=== PATIENT | female | born 1965 | race Caucasian/White ===

== ENCOUNTER 2017-01-30 12:44 | Inpatient (IN) | payer OTHER, MEDICARE ==
[~2017-01-30] VITALS: Ht 160 cm; Wt 95.3 kg
[~2017-01-30 12:44] MED LIST: COMBIVENT1 AR1 INH
--- NOTE | 2017-01-30 12:51 | NUR ---
51 Y/O FEMALE SENT BY DR SNOW FOR EVAL OF "PNEUMONIA X 3 WEEKS. HE WANTS AN XRAY AND CT SCAN". PT STATES SHE HAS FINISHED 2 ROUNDS OF ANTIBIOTICS WITH NO CHANGE IN SYMPTOMS. CONTINUED COUGH AND STATES THE PHLEGM SITS IN CHEST NOW. REPORTS GOOD APPETITE/PO INTAKE. REPORTS FEVERS AT HOME. AFEBRILE IN TRIAGE PT STATES DR SNOW REQUESTED A PHONE CALL AFTER EVAL. COPY OF VISIT WITH DR SNOW PLACED WITH CHART
--- NOTE | 2017-01-30 13:00 | NUR ---
TAKEN TO RADIOLOGY FROM WAITING ROOM
--- NOTE | 2017-01-30 13:13 | NUR ---
PT TO RM 20 VIA STRETCHER
--- NOTE | 2017-01-30 13:18 | RADIOLOGY REPORT ---
EXAMINATION: XR CHEST CLINICAL INFORMATION: Pneumonia which is not improving. COMPARISON: Multiple priors, most recently 01/24/2017. TECHNIQUE: 2 views of the chest were obtained. FINDINGS: The lungs are well expanded. There is persistent opacity throughout the right lung, particularly along the peripheral right mid to lower lung. Central bronchial wall thickening and opacities are improving from prior. Improving aeration at the right lung base. No pleural effusion. No pneumothorax. The cardiomediastinal silhouette is within normal limits. Degenerative changes of the spine. IMPRESSION: Persistent right lung airspace opacities, particularly at the periphery of the right mid to upper lung. There is partial improvement of aeration at the right perihilar region and at the right base, suggesting improving pneumonia.
--- NOTE | 2017-01-30 13:36 | ED DYSPNEA/ASTHMA COMPLAINT ---
History of Present Illness General Chief Complaint: General Adult Stated Complaint: PNA X 3WEEKS Source: patient, family, old records Exam Limitations: no limitations Vital Signs & Intake/Output Vital Signs & Intake/Output Vital Signs Date Time Temp Pulse Resp B/P Pulse O2 O2 Flow FiO2 Ox Delivery Rate 01/31 0832 111 176/80 01/31 0618 98.0 111 20 176/80 95 Room Air 01/30 2250 98.3 114 19 150/80 94 Room Air 01/30 2009 Room Air 01/30 1731 99.4 118 19 164/80 95 Room Air 01/30 1638 98.6 118 18 178/88 95 Room Air 01/30 1415 99.5 120 18 177/85 97 Room Air 01/30 1315 96 Room Air 01/30 1247 97.7 126 18 184/99 96 Room Air ED Intake and Output 01/31 0000 01/30 1200 Intake Total 975 Output Total Balance 975 Intake, IV 225 Intake, Oral 750 Patient 210 lb Weight Allergies Coded Allergies: cyclophosphamide (From CYTOXAN) (UNKNOWN 01/30/17) methylprednisolone (From SOLU-MEDROL) (UNKNOWN 01/30/17) Reconcile Medications Carisoprodol 350 MG TABLET 1 TAB PO BIDP PRN MUSCLE SPASMS (Reported) Cefdinir 300 MG CAPSULE 1 CAP PO BID ANTIBIOTIC, INFECTION (Reported) Clonazepam 1 MG TABLET 1 TAB PO BIDP PRN ANXIETY (Reported) Cyanocobalamin (Vitamin B-12) (Cyanocobalamin Injection) 1,000 MCG/ML VIAL 1 ML IM QSAT SUPPLEMENT (Reported) Cyclobenzaprine HCl 10 MG TABLET 1 TAB PO TID PRN MUSCLE SPASMS (Reported) Esomeprazole (Nexium) 40 MG CAPSULE.DR 1 CAP PO QPM GI (Reported) Fluticasone-Salmeterol (Advair 100-50 Diskus) 100 MCG-50 MCG/DOSE BLST.W.DEV 1 PUF INH BID BREATHING PROBLEMS (Reported) Furosemide 20 MG TABLET 1 TAB PO DAILY PRN WATER PILL (Reported) Hydrocodone/Acetaminophen (Hydrocodon-Acetaminophn 10-300) 10 MG-300 MG TABLET 1 TAB PO Q6 PRN PAIN (Reported) Ipratropium/Albuterol Sulfate (Combivent Respimat Inhal Freeborn) 20 MCG-100 MCG/ ACTUATION MIST.INHAL 2 PUFF PO DAILY PRN SHORTNESS OF BREATH (Reported) Linaclotide (Linzess) 290 MCG CAPSULE 1 CAP PO DAILY GI (Reported) Losartan Potassium 50 MG TABLET 1 TAB PO DAILY HEART (Reported) Metformin HCl 500 MG TABLET 1 TAB PO DAILY DM (Reported) Oxycodone HCl 15 MG TABLET 1 TAB PO TIDPRN PRN PAIN (Reported) Triage Note: 51 Y/O FEMALE SENT BY DR VERDUZCO FOR EVAL OF "PNEUMONIA X 3 WEEKS. HE WANTS AN XRAY AND CT SCAN". PT STATES SHE HAS FINISHED 2 ROUNDS OF ANTIBIOTICS WITH NO CHANGE IN SYMPTOMS. CONTINUED COUGH AND STATES THE PHLEGM SITS IN CHEST NOW. REPORTS GOOD APPETITE/PO INTAKE. REPORTS FEVERS AT HOME. AFEBRILE IN TRIAGE PT STATES DR VERDUZCO REQUESTED A PHONE CALL AFTER EVAL. COPY OF VISIT WITH DR VERDUZCO PLACED WITH CHART Triage Nurses Notes Reviewed? yes Onset: Abrupt Duration: week(s): (3), constant Timing: recent history Severity: moderate Activities at Onset: none Prior Episodes/Possible Cause: no prior episodes Modifying Factors: Worsens With: movement. Associated Symptoms: cough HPI: 51-year-old female history of MS presents emergency room for evaluation sent in by her primary care physician complaining of persistent shortness of breath right-sided chest pain cough productive of yellow sputum and fevers for the past 3 weeks. She was recently on a course of azithromycin and Ceftin year after she had an outpatient x-ray that showed pneumonia. The symptoms persist and she was sent in today for further evaluation and admission by her primary care physician. She denies any abdominal pain leg swelling numbness tingling weakness no recent travel. She is an active smoker no modifying factors or associated symptoms otherwise (LUANNE BURRELL) Past History Travel History Traveled to [place] past 21 day No Medical History Any Pertinent Medical History? see below for history Neurological: multiple sclerosis EENT: NONE Cardiovascular: NONE Respiratory: BORDERLINE ASTHMA Gastrointestinal: NONE Renal: NONE Musculoskeletal: NONE Endocrine: NONE Blood Disorders: NONE Pneumonia Vaccine: 07/17/02 Influenza Vaccine: 07/16/03 Surgical History Surgical History: unobtainable Psychosocial History What is your primary language Lao Tobacco Use: Current Not Daily Family History Hx Contributory? No (LUANNE BURRELL) Review of Systems Review of Systems Constitutional: Reports: see HPI. All Other Systems: Reviewed and Negative Comments Review of systems: See HPI, All other systems negative. Constitutional, no chills no fever, no malaise HEENT: No visual changes no sore throat no congestion, Cardiovascular: No chest pain , no palpitation , no orthopnea no ankle swelling Skin, no jaundice no rashes, no change in skin Respiratory: dyspnea cough sputum no hemoptysis GI: No nausea no vomiting, no diarrhea, : No dysuria Muscle skeletal: No joint pain, no back pain, no neck pain, Neurologic: No numbnesS no headache Psych: No stress Heme/endocrine: No bruising no bleeding Immunology: No lymphadenopathy (LUANNE BURRELL) Physical Exam Physical Exam General Appearance: well developed/nourished, alert, awake Respiratory: chest non-tender, crackles (R SIDED) Comments: Well-developed well-nourished person in no acute distress HEENT: Normal EENT exam; PERRL, EOMI. HEAD is atraumatic. moist mucous membranes. Neck: Supple, BACK: no CVA tenderness. Full range of motion Cardiovascular: Regular rate and rhythms no murmurs rubs or gallops, normal JVP Respiratory: Chest nontender.There were no bony deformities, no asymmetry. No respiratory distress. Patient speaking in full complete sentences. Crackles right side no rhonchi no wheezing Abdomen: Soft, nontender nondistended, no appreciable organomegaly. Normal bowel sounds. No rebound/guarding, No ascites. Extremity: No edema, full range of motion of extremities, Neuro: Alert oriented x3, motor sensory normal,. There were no obvious focal neurologic abnormalities. Skin: No appreciable rash on exposed skin, skin is warm and dry. Psych: Mood and affect is normal, memory and judgment is normal. Core Measures ACS in differential dx? Yes Severe Sepsis Present: No Septic Shock Present: No (LUANNE BURRELL) Progress Differential Diagnosis: asthma, AMI, bronchitis, costochondritis, CHF, COPD, musculoskeletal pain, pericarditis, pulmonary embolism, pneumonia, pneumothorax, unstable angina Plan of Care: Orders Procedure Date/time Status RAPID VIRAL INFLUENZA A 01/31 0910 Active CBC WITHOUT DIFFERENTIAL 01/31 0600 Active Heart Healthy Diet 01/30 D Active Vital Signs 01/31 1756 Active Teach/Educate 01/31 1756 Active Pain Treatment and Response 01/31 1756 Active Nutritional Intake, Monitor 04/17 1756 Active Isolation 04/17 1756 Active Intake & Output 01/30 1756 Active Patient Care Conference 01/30 1756 Active Activity/Ambulation 01/30 1756 Active FingerStick- Glucose 01/30 1752 Active STREP PNEUMO URINARY ANTIGEN 01/30 1618 Active LEGIONELLA URINARY ANTIGEN 01/30 1618 Active Pathway - chart 01/30 1533 Active House Staff 01/30 1533 Active Patient Data 01/30 1533 Active Code Status 01/30 1533 Active Add-on Test (ER Only) 01/30 1532 Active D-DIMER 01/30 1450 Complete Admit to inpatient 01/30 1351 Active Vital Signs 01/30 1351 Active Code Status 01/30 1351 Complete BLOOD CULTURE 01/30 1344 Active TROPONIN LEVEL 01/30 1344 Complete COMPREHENSIVE METABOLIC PANEL 01/30 1344 Complete CBC WITHOUT DIFFERENTIAL 01/30 1344 Complete EKG 01/30 1344 Active Intake & Output 01/30 1315 Active VTE Mechanical Prophylaxis 01/30 UNK Active Current Medications Sig/Jai Start time Last Medication Dose Stop Time Status Admin Cyanocobalamin 1,000 MCG QSAT 02/04 0700 AC (Vitamin B12) Azithromycin 500 MG DAILY 01/31 1000 CAN (Zithromax) Sodium Chloride 250 ML (Normal Saline 0.9%) Ceftriaxone Sodium 1,000 MG DAILY 01/31 1000 CAN (Rocephin) Moxifloxacin HCl 400 MG Q24 01/31 1000 CAN (Avelox I.v. (Rph Only)) Senna/Docusate Sodium 2 TAB DAILY PRN 01/30 2045 AC (Senokot S) Insulin Aspart 0 TIDAC 01/30 1700 AC (NovoLOG) Enoxaparin Sodium 40 MG DAILY 01/30 1624 AC (Lovenox) Morphine Sulfate 2 MG Q4P PRN 01/30 1545 AC (Morphine) Laboratory Tests 01/31/17 0709: CBC w Diff Pending, WBC Pending, RBC Pending, Hgb Pending, Hct Pending, MCV Pending, MCH Pending, RDW Pending, Plt Count Pending, MPV Pending, Gran % Pending, Lymphocytes % Pending, Monocytes % Pending, Eosinophils % Pending, Basophils % Pending, Absolute Granulocytes Pending, Absolute Lymphocytes Pending , Absolute Monocytes Pending, Absolute Eosinophils Pending, Absolute Basophils Pending, PUBS MCHC Pending 01/30/17 1450: Anion Gap 13, Estimated GFR > 60, BUN/Creatinine Ratio 10.0, Glucose 215 H, Calcium 9.6, Total Bilirubin 0.3, AST 18, ALT 40, Alkaline Phosphatase 143 H, Troponin I < 0.01, Total Protein 6.4, Albumin 3.3 L, Globulin 3.1, Albumin/ Globulin Ratio 1.1, D-Dimer 3968 H, CBC w Diff NO MAN DIFF REQ, RBC 4.41, MCV 80.3 L, MCH 27.0, RDW 13.7, MPV 7.1 L, Gran % 75.4 H, Lymphocytes % 16.5 L, Monocytes % 7.4, Eosinophils % 0.5, Basophils % 0.2, Absolute Granulocytes 11.5 H, Absolute Lymphocytes 2.5, Absolute Monocytes 1.1 H, Absolute Eosinophils 0.1 , Absolute Basophils 0, PUBS MCHC 33.6 Microbiology 01/31 0910 NASOPHARYN: Influenza Virus A & B Rapid Smear - ORD 01/30 1618 URINE ROUT: Legionella Antigen - COLB 01/30 1618 URINE ROUT: Streptococcus pneumoniae Antigen (M - COLB 01/30 1600 BLOOD: Blood Culture - RECD 01/30 1450 BLOOD: Blood Culture - RECD Labs ordered old records reviewed CAT scan x-rays ordered case discussed with Dr. Verduzco agrees with plan D/W DR TURPIN AGREES WTIH PLAN Discussed with the patient her CT findings, pending labs Old records reviewed the patient's tachycardia appears to have been present in her previous emergency room visits dating back through 2009 as well as her elevated blood pressure which she states she is not taken any medication, I considered pulmonary embolism however given duration of symptoms and do not believe the patient required a CTA at this time Case discussed withdr nunez will admit (LUANNE BURRELL) Diagnostic Imaging: Viewed by Me: Radiology Read. Discussed w/RAD: Radiology Read. Radiology Impression: PATIENT: TANA SANTILLAN PRESENT AGE: 51 PATIENT ACCOUNT NO: [id number] : 63 LOCATION: [facility] ORDERING PHYSICIAN: JOSEPHINE TURPIN MD SERVICE DATE: 01/30/17-1251 EXAM TYPE: RAD - XRY-CHEST XRAY, PA AND LATERAL EXAMINATION: XR CHEST CLINICAL INFORMATION: Pneumonia which is not improving. COMPARISON: Multiple priors, most recently 08/2017. TECHNIQUE: 2 views of the chest were obtained. FINDINGS: The lungs are well expanded. There is persistent opacity throughout the right lung, particularly along the peripheral right mid to lower lung. Central bronchial wall thickening and opacities are improving from prior. Improving aeration at the right lung base. No pleural effusion. No pneumothorax. The cardiomediastinal silhouette is within normal limits. Degenerative changes of the spine. IMPRESSION: Persistent right lung airspace opacities, particularly at the periphery of the right mid to upper lung. There is partial improvement of aeration at the right perihilar region and at the right base, suggesting improving pneumonia. DICTATED BY: DALILA ELIZABETH MD DATE/TIME DICTATED:01/30 NOVELTY DIPPER:RENAE DATE/TIME TRANSCRIBED:01/30/171312 CONFIDENTIAL, DO NOT COPY WITHOUT APPROPRIATE AUTHORIZATION. <Electronically signed in Other Vendor System> SIGNED BY: DALILA ELIZABETH MD 01/30/178, PATIENT: TANA SANTILLAN PRESENT AGE: 51 PATIENT ACCOUNT NO: [id number] : 63 LOCATION: [facility] ORDERING PHYSICIAN: LUANNE BAUGH SERVICE DATE: 01/30/17 EXAM TYPE: CAT - CT CHEST WO IV CONTRAST EXAMINATION: CT CHEST WITHOUT CONTRAST CLINICAL INFORMATION: Right upper lobe pneumonia COMPARISON: CT chest dated 04/04/2016. Multiple prior chest x-rays most recent prior dated 01/30/2017 TECHNIQUE: Multidetector volumetric CT imaging of the chest was done. Axial MIP volume rendering provided. Sagittal and coronal reformatted images were obtained. DLP: 376.66 mGy-cm FINDINGS: SAFETY AND SECURITY MANAGER: Patchy reticular opacity right upper lung. LUNGS: Underlying emphysematous changes. Airspace consolidation with air bronchograms apical apical, lateral and posterior aspects right upper lobe. Associated reticular changes and groundglass opacity noted throughout the right upper lobe. These are new finding compared to the prior CT chest. There is also represent new findings on the chest x-ray compared to prior chest x-ray dated 01/11/2017. Patchy consolidation extends to the right hilum. Patent tracheobronchial tree. The remaining lungs do not demonstrate any evidence of similar airspace opacity. Linear subpleural ectatic changes noted in the left apical segment and minor reticular changes noted in the subpleural location right base. MEDIASTINUM: Mildly enlarged lymph node noted in the right pretracheal region measuring approximately 0.9 cm in short axis and mildly enlarged subcarinal lymph node compatible with reactive nodes. Small epicardiac lymph node noted again. No gross lymphadenopathy. Mild atherosclerotic disease with intimal calcification of the aorta. Slightly hyperdense nodule noted in the superior mediastinum measuring approximately 2.3 x 1.6 cm has remained stable over the interval. Given its long-term stability since remote CT chest dated 08/22/2013, this may represent benign etiology including parathyroid adenoma or aberrant thyroid tissue given the similar density and enhancement compared to the adjacent thyroid gland. PLEURA: Pleural thickening right upper lobe. Trace right pleural effusion. AXILLA: No lymphadenopathy. UPPER ABDOMEN: Stable right adrenal nodule measuring approximately 1.5 cm. Hounsfield units are suggestive of adrenal adenoma. Stable minor prominence of the left adrenal gland. OSSEOUS STRUCTURES: No acute osseous modality. IMPRESSION: 1. Right upper lobe consolidation with associated groundglass reticular infiltrate in keeping with right upper lobe pneumonia. Findings may represent a combination of community-acquired pneumonia including bacterial and viral pneumonia. Continued evaluation with follow-up CT chest after treatment in 4-6 weeks recommended. 2. Mildly enlarged reactive mediastinal lymph nodes. 3. Nodular density noted again in the superior mediastinum. Given the stability, this may represent either a stable superior thymic lesion versus aberrant thyroid or parathyroid adenoma. 4. Stable right adrenal nodule. DICTATED BY: DANIELLA FREEMAN MD DATE/TIME DICTATED:01/30/171399 NOVELTY DIPPER:RENAE DATE/TIME TRANSCRIBED:01/30/171399 CONFIDENTIAL, DO NOT COPY WITHOUT APPROPRIATE AUTHORIZATION. <Electronically signed in Other Vendor System> SIGNED BY: DANIELLA FREEMAN MD 01/30/17 1426 Initial ED EKG: STACH AT 120, NO ACUTE ST SEG CHANGES, NORMAL AXIS Prior EKG: unchanged (07/2015) Rhythm Strip: sinus tachycardia (LUANNE BURRELL) Departure Departure Time of Disposition: 1536 Disposition: STILL A PATIENT Condition: Stable Clinical Impression Primary Impression: PNA (pneumonia) Secondary Impressions: Adrenal nodule, Nodule of chest wall Referrals: KAITY VERDUZCO MD (PCP/Family) Departure Forms: Customer Survey General Discharge Information Admission Note Spoke With: SONIA PUENTE,OC Faith Documentation of Exam: Documentation of any treatments & extenuating circumstances including Concerns Regarding Discharge (functional status, medication knowledge or non-compliance, living conditions, etc.) that warrant an admission rather than observation: Trend labs, IV steroids IV antibiotics pulmonology consult premature discharge would BE medically harmful trend cultures. Patient has been on 2 rounds of antibiotics for the past 3 weeks without improvement. She has failed outpatient therapy (LUANNE BURRELL) PA/REPAIRER MAINTENANCE BUILDING Co-Sign Statement Statement: ED Attending supervision documentation- [] I saw and evaluated the patient. I have also reviewed all the pertinent lab results and diagnostic results. I agree with the findings and the plan of care as documented in the PA's/REPAIRER MAINTENANCE BUILDING's documentation. [X] I have reviewed the ED Record and agree with the PA's/REPAIRER MAINTENANCE BUILDING's documentation. [] Additions or exceptions (if any) to the PAs/REPAIRER MAINTENANCE BUILDING's note and plan are summarized below: [] (PAPI PUENTE,JOSEPHINE) Critical Care Note Critical Care Note Critical Care Time: non-applicable (LUANNE BURRELL)
[2017-01-30] MEDS ORDERED: LOSARTAN POTASS50 M1 PO (14:08)
[2017-01-30] MEDS ORDERED: LINZESS290 MC1 PO (14:08)
[2017-01-30] MEDS ORDERED: METFORMIN HCL500 M3 PO (14:08)
[2017-01-30] MEDS ORDERED: CARISOPRODOL350 M1 PO (14:09)
[2017-01-30] MEDS ORDERED: CYCLOBENZAPRINE10 M1 PO (14:09)
[2017-01-30] MEDS ORDERED: CLONAZEPAM1 M2 PO (14:09)
[2017-01-30] MEDS ORDERED: COMBIVENT RESPIM4 GM PO (14:10)
[2017-01-30] MEDS ORDERED: CEFDINIR300 M1 PO (14:10)
[2017-01-30] MEDS ORDERED: HYDROCODON-ACE1 EAC4 PO (14:11)
[2017-01-30] MEDS ORDERED: OXYCODONE HCL15 M1 PO (14:11)
[2017-01-30] MEDS ORDERED: CYANOCOBAL1000 MCG/2 IM (14:11)
[2017-01-30] MEDS ORDERED: ADVAIR 100-501 EACH INH (14:12)
[2017-01-30] MEDS ORDERED: FUROSEMIDE20 M1 PO (14:12)
[2017-01-30] MEDS ORDERED: NEXIUM40 M1 PO (14:13)
--- NOTE | 2017-01-30 14:26 | CT SCAN REPORT ---
EXAMINATION: CT CHEST WITHOUT CONTRAST CLINICAL INFORMATION: Right upper lobe pneumonia COMPARISON: CT chest dated 04/04/2016. Multiple prior chest x-rays most recent prior dated 01/30/2017 TECHNIQUE: Multidetector volumetric CT imaging of the chest was done. Axial MIP volume rendering provided. Sagittal and coronal reformatted images were obtained. DLP: 376.66 mGy-cm FINDINGS: ENVELOPE ADDRESSER: Patchy reticular opacity right upper lung. LUNGS: Underlying emphysematous changes. Airspace consolidation with air bronchograms apical apical, lateral and posterior aspects right upper lobe. Associated reticular changes and groundglass opacity noted throughout the right upper lobe. These are new finding compared to the prior CT chest. There is also represent new findings on the chest x-ray compared to prior chest x-ray dated 01/11/2017. Patchy consolidation extends to the right hilum. Patent tracheobronchial tree. The remaining lungs do not demonstrate any evidence of similar airspace opacity. Linear subpleural ectatic changes noted in the left apical segment and minor reticular changes noted in the subpleural location right base. MEDIASTINUM: Mildly enlarged lymph node noted in the right pretracheal region measuring approximately 0.9 cm in short axis and mildly enlarged subcarinal lymph node compatible with reactive nodes. Small epicardiac lymph node noted again. No gross lymphadenopathy. Mild atherosclerotic disease with intimal calcification of the aorta. Slightly hyperdense nodule noted in the superior mediastinum measuring approximately 2.3 x 1.6 cm has remained stable over the interval. Given its long-term stability since remote CT chest dated 08/22/2013, this may represent benign etiology including parathyroid adenoma or aberrant thyroid tissue given the similar density and enhancement compared to the adjacent thyroid gland. PLEURA: Pleural thickening right upper lobe. Trace right pleural effusion. AXILLA: No lymphadenopathy. UPPER ABDOMEN: Stable right adrenal nodule measuring approximately 1.5 cm. Hounsfield units are suggestive of adrenal adenoma. Stable minor prominence of the left adrenal gland. OSSEOUS STRUCTURES: No acute osseous modality. IMPRESSION: 1. Right upper lobe consolidation with associated groundglass reticular infiltrate in keeping with right upper lobe pneumonia. Findings may represent a combination of community-acquired pneumonia including bacterial and viral pneumonia. Continued evaluation with follow-up CT chest after treatment in 4-6 weeks recommended. 2. Mildly enlarged reactive mediastinal lymph nodes. 3. Nodular density noted again in the superior mediastinum. Given the stability, this may represent either a stable superior thymic lesion versus aberrant thyroid or parathyroid adenoma. 4. Stable right adrenal nodule.
--- NOTE | 2017-01-30 14:44 | NUR ---
MST AT BEDSIDE FOR VENIPUNCTURE
[2017-01-30 14:59] LABS: ABSOLUTE BASOPHIL COUNT 0 /CUMM (0.0-0.2); ABSOLUTE EOSINOPHIL COUNT 0.1 /CUMM (0.0-0.7); ABSOLUTE GRANULOCYTE CT 11.5 /CUMM (1.4-6.5); ABSOLUTE LYMPH COUNT 2.5 /CUMM (1.2-3.4); ABSOLUTE MONOCYTE COUNT 1.1 /CUMM (0.10-0.60); BASOPHIL % 0.2 % (0.0-2.0); EOSINOPHIL % 0.5 % (0-5); HEMATOCRIT 35.5 % (37-47); MEAN CORPUSCULAR HGB CONC 33.6 G/DL (33.0-37.0); MEAN CORPUSCULAR VOLUME 80.3 FL (81.0-99.0); MEAN PLATELET VOLUME 7.1 FL (7.4-10.4); PLATELET COUNT 475 /CUMM (130-400); RBC DISTRIBUTION WIDTH 13.7 % (11.5-14.5); RED BLOOD CELL CT 4.41 /CUMM (4.20-5.40); WHITE BLOOD CELL COUNT 15.3 /CUMM (4.8-10.8)
[2017-01-30 15:01] LABS: GRANULOCYTE % 75.4 % (42.2-75.2)
--- NOTE | 2017-01-30 15:43 | History & Physical ---
HAJA PUENTE,PRECIOUS 01/30/17 1543: General Information and HPI MD Statement: I have seen and personally examined TANA SANTILLAN and documented this H& P. The patient is a 51 year old F who presented with a patient stated chief complaint of [shortness of breath]. Source of Information: patient, old records History of Present Illness: This is a 51-year-old female with a past medical history of multiple Sclerosis in remission since 1990 diabetes currently on metformin, metformin currently on losartan, who presented to the [facility] persistent shortness of breath and fever for the last 3 weeks. The patient's symptoms started 3 weeks back for which she went to her primary care physician who started him on azithromycin and cefdinir. The patient completed 10 days course of antibiotic therapy and the patient's symptoms resolved for 1 day but came back again. She went to see her primary care physician again who referred her to the emergency department for further evaluation. In the emergency department patient was saturating to 94% had a low-grade fever of 99 was persistently tachycardic from 118-126, hypertensive blood pressure of 177/84. The patient has persistent shortness of breath along with cough which is slightly productive with whitish sputum. Denies any chest pain, reveals bronchitis or nasal congestion. The patient denies any long distance travel or any recent sick contacts. Allergies/Medications Allergies: Coded Allergies: cyclophosphamide (From CYTOXAN) (UNKNOWN 01/30/17) methylprednisolone (From SOLU-MEDROL) (UNKNOWN 01/30/17) Compliance With Home Meds: GOOD Past History Travel History Traveled to [place] past 21 day No Medical History Neurological: multiple sclerosis EENT: NONE Cardiovascular: NONE Respiratory: BORDERLINE ASTHMA Gastrointestinal: NONE Renal: NONE Musculoskeletal: NONE Endocrine: NONE Blood Disorders: NONE Pneumonia Vaccine: 07/17/02 Influenza Vaccine: 07/16/03 Surgical History Surgical History: unobtainable Past Family/Social History Family History Relations & Conditions if any FATHER Relation not specified for: FH: hypertension Psychosocial History Where do you live? Home Who Do You Live With? spouse Primary Language: Barbadian Smoking Status: Current Everyday Smoker ETOH Use: occasional use Review of Systems Review of Systems Constitutional: Reports: see HPI. Cardiovascular: Reports: see HPI. Respiratory: Reports: see HPI, cough, hemoptysis, short of breath. GI: Denies: bloating, constipation. Genitourinary: Denies: dysuria, frequency, hematuria. Musculoskeletal: Denies: back pain, gout, joint pain, joint swelling. Skin: Denies: change in hair/nails, dryness, erythema. Exam & Diagnostic Data Last 24 Hrs of Vital Signs/I&O Vital Signs Date Time Temp Pulse Resp B/P Pulse O2 O2 Flow FiO2 Ox Delivery Rate 01/30 1731 99.4 118 19 164/80 95 Room Air 01/30 1638 98.6 118 18 178/88 95 Room Air 01/30 1415 99.5 120 18 177/85 97 Room Air 01/30 1315 96 Room Air 01/30 1247 97.7 126 18 184/99 96 Room Air Intake & Output 01/30 1600 01/30 0800 01/30 0000 Intake Total 0 Output Total Balance 0 Intake, Oral 0 Patient 213 lb Weight Physical Exam General Appearance Alert, Oriented X3 Skin No Rashes, No Breakdown HEENT Atraumatic, PERRLA, EOMI Neck No JVD, No thryomegaly Cardiovascular Normal S1, Normal S2 Lungs bilateral decreased air entry no wheezing or crackles Abdomen Soft, No Tenderness Assessment/Plan Assessment: This is a 50-year-old female with a past medical history of diabetes hypertension who presented to the [facility] with persistent shortness of breath after failing outpatient treatment for community-acquired pneumonia Vitals at the time of admission shows blood pressure of 177/84 pulse rate of 122 , respiration rate of 18, saturation of 94% on room air, Labs showed a WBC of 15.3, hemoglobin of 11.9, hematocrit of 35.5, Sodium 141, potassium of 3.8, d-dimer of 3968 CT chest shows Right upper lobe consolidation with associated groundglass reticular infiltrate in keeping with right upper lobe pneumonia. Findings may represent a combination of community-acquired pneumonia including bacterial and viral pneumonia. Continued evaluation with follow-up CT chest after treatment in 4-6 weeks recommended. 2. Mildly enlarged reactive mediastinal lymph nodes. 3. Nodular density noted again in the superior mediastinum. Given the stability, this may represent either a stable superior thymic lesion versus aberrant thyroid or parathyroid adenoma. 4. Stable right adrenal nodule. EKG showed sinus tachycardia Assessment 1. Community acquired pneumonia as evident by the radiological findings who has failed outpatient therapy .2. Persistent tachycardia in the absence of any underlying cardiac disease: Even though the Wells criteria is low for pulmonary embolism but the persistently elevated heart rate and elevated d-dimer we should rule out pulmonary embolism 3. Chronic hypertension 4. Chronic diabetes mellitus 5. History of multiple sclerosis in remission Plan Admit to general medicine floor Considering that the patient has failed antibiotic therapy which included azithromycin and cefdinir we should switch the antibiotics to IV fluoroquinolones which includes moxifloxacin. 400 mg IV daily Considering that the patient has persistent tachycardia even after getting the treatment and the blood pressure medications, we should rule out pulmonary embolism even though the suspicion is low but considering elevated d-dimer's and persistent tachycardia this should be resolved Unfortunately the ED staff performed a CT chest without contrast. We will repeat the CTA For her diabetes we will convert her to NovoLog sliding scale DVT prophylaxis at all times with subcutaneous Lovenox Patient is full code Pain pathway As Ranked By This Provider Problem List: 1. PNA (pneumonia) Core Measures/Miscellaneous Acute Coronary Syndrome ACS Diagnosis: No Cerebrovascular Accident CVA/TIA Diagnosis: No Congestive Heart Failure CHF Diagnosis: No Venous Thromboembolism VTE Risk Factors: Acute medical illness, Age > 40 No [facility] VTE prophylaxis d/t: No contraindications No VTE Pharm Prophylaxis d/t: No contraindications VTE Diagnosis: No VTE Type: NONE VTE Confirmed by (Test): NONE Severe Sepsis Severe Sepsis Present: No Septic Shock Septic Shock Present: No Miscellaneous Documentation Attending Case Discussed With: OC SCOTT MD Primary Care Physician: KAITY SNOW MD Patient sees these Specialists none Level of Patient Care: General Medicine OC SCOTT 02/01/17 1335: General Information and HPI Allergies/Medications Home Med list Carisoprodol 350 MG TABLET 1 TAB PO BIDP PRN MUSCLE SPASMS (Reported) Cefdinir 300 MG CAPSULE 1 CAP PO BID ANTIBIOTIC, INFECTION (Reported) Clonazepam 1 MG TABLET 1 TAB PO BIDP PRN ANXIETY (Reported) Clotrimazole 1 % CREAM..G. 1 TATIANA TOP QAMPM CANDIDAL VULVOAGNITIS apply to affected area(s) Cyanocobalamin (Vitamin B-12) (Cyanocobalamin Injection) 1,000 MCG/ML VIAL 1 ML IM QSAT SUPPLEMENT (Reported) Cyclobenzaprine HCl 10 MG TABLET 1 TAB PO TID PRN MUSCLE SPASMS (Reported) Esomeprazole (Nexium) 40 MG CAPSULE.DR 1 CAP PO QPM GI (Reported) Fluticasone-Salmeterol (Advair 100-50 Diskus) 100 MCG-50 MCG/DOSE BLST.W.DEV 1 PUF INH BID BREATHING PROBLEMS (Reported) Furosemide 20 MG TABLET 1 TAB PO DAILY PRN WATER PILL (Reported) Hydrocodone/Acetaminophen (Hydrocodon-Acetaminophn 10-300) 10 MG-300 MG TABLET 1 TAB PO Q6 PRN PAIN (Reported) Ipratropium/Albuterol Sulfate (Combivent Respimat Inhal [place]) 20 MCG-100 MCG/ ACTUATION MIST.INHAL 2 PUFF PO DAILY PRN SHORTNESS OF BREATH (Reported) Lactobacillus Acidophilus (Acidophilus) 1 BILLION CELL TABLET 1 TAB PO DAILY PROPHYLAXIS Linaclotide (Linzess) 290 MCG CAPSULE 1 CAP PO DAILY GI (Reported) Losartan Potassium 50 MG TABLET 1 TAB PO DAILY HEART (Reported) Metformin HCl 500 MG TABLET 1 TAB PO DAILY DM (Reported) Moxifloxacin HCl (Avelox) 400 MG TABLET 1 TAB PO DAILY pneumonia Oxycodone HCl 15 MG TABLET 1 TAB PO TIDPRN PRN PAIN (Reported) Attending MD Review Statement Attending Statement Attending MD Statement: examined this patient, discuss w/resident/PA/SAFETY LEAD, agreed w/resident/PA/SAFETY LEAD, discussed with family, reviewed EMR data (avail), discussed with nursing Attending Assessment/Plan: please see my attending note for more details.
--- NOTE | 2017-01-30 16:00 | NUR ---
125MG SOLUMEDROL GIVEN. PT STATES SHE IS NOT ACTUALLY ALLERGIC TO MEDICATION, BUT SOMETIMES SHE FEELS LIKE HER HEART IS RACING AFTER SHE GETS THE SOLUMEDROL TREATMENT FOR MS
--- NOTE | 2017-01-30 16:20 | NUR ---
HOUSE STAFF AT BEDSIDE
--- NOTE | 2017-01-30 16:37 | NUR ---
PT TO ROOM 223 BED 2
--- NOTE | 2017-01-30 17:13 | NUR ---
PER ATTENDING, DO NOT GIVE LOSARTAN, PT HAD ALREADY TAKEN IT THIS MORNING. NO OTHER BP MEDS TO BE GIVEN AT THIS TIME
--- NOTE | 2017-01-30 17:20 | NUR ---
PT UP TO FLOOR 1720. PT A/0 X3 . PT ON RA. LUNGS DIMINISHED. DENIES SOB. CHRONIC PAIN PAIN MED TO BVE GIVEN PER EMAR. NO BREAKDOWN NOTED. CALL YAÑEZ USE INSTRUCTED . WILL MONITOR
[2017-01-30 17:31] VITALS: BP 164/80
--- NOTE | 2017-01-30 18:25 | Admission Certification ---
Admission Certification Certification Statement - As attending physician, I certify that at the time of - admission, based on clinical presentation, severity of - symptoms, need for further diagnostic testing and - therapeutic interventions, and risk of adverse outcomes - without in-hospital treatment, in my clinical assessment, - this patient requires an acute hospital stay for a minimum - of two nights or longer. I have also considered psychsocial - factors such as support system, advanced age, financial - issues, cognitive issues, and failed out-patient treatments, - past re-admission history, safety of patient, and lack of - compliance as applicable. Specific rationale supporting this admission is: pneumonia.
--- NOTE | 2017-01-30 18:25 | PN- Att Addend ---
Attending MD Review Statement Attending Statement Attending MD Statement: examined this patient, discuss w/resident/PA/FORENSIC PSYCHIATRIST, agreed w/resident/PA/FORENSIC PSYCHIATRIST, discussed with family, reviewed EMR data (avail), discussed w/ nursing Attending Assessment/Plan: Laboratory Tests 01/30/17 1450: Anion Gap 13, Estimated GFR > 60, BUN/Creatinine Ratio 10.0, Glucose 215 H, Calcium 9.6, Total Bilirubin 0.3, AST 18, ALT 40, Alkaline Phosphatase 143 H, Troponin I < 0.01, Total Protein 6.4, Albumin 3.3 L, Globulin 3.1, Albumin/ Globulin Ratio 1.1, D-Dimer 3968 H, CBC w Diff NO MAN DIFF REQ, RBC 4.41, MCV 80.3 L, MCH 27.0, RDW 13.7, MPV 7.1 L, Gran % 75.4 H, Lymphocytes % 16.5 L, Monocytes % 7.4, Eosinophils % 0.5, Basophils % 0.2, Absolute Granulocytes 11.5 H, Absolute Lymphocytes 2.5, Absolute Monocytes 1.1 H, Absolute Eosinophils 0.1 , Absolute Basophils 0, PUBS MCHC 33.6 Vital Signs Date Time Temp Pulse Resp B/P Pulse O2 O2 Flow FiO2 Ox Delivery Rate 01/30 1731 99.4 118 19 164/80 95 Room Air 01/30 1638 98.6 118 18 178/88 95 Room Air 01/30 1415 99.5 120 18 177/85 97 Room Air 01/30 1315 96 Room Air 01/30 1247 97.7 126 18 184/99 96 Room Air Patient seen and examined at bedside. Discussed with patient the care plan. 51 -year-old female with past medical history of multiple sclerosis diagnosed in 1990 in remission, chronic smoker, diabetes, admitted with the chief complaint of shortness of breath which started about 3 weeks back with cough. Patient was treated with a cephalosporin for 10 days and she still is currently on that with one dose left. Since patient was not improving on cephalosporin patient was started on Z-Jay by her PCP about 5 days ago and she finished her Z-Jay yesterday. Patient still was not getting better so patient presented to the ER on instructions of her primary care physician. Patient still has cough with whitish sputum. Patient had a CAT scan of the chest done in the ER which showed "Right upper lobe consolidation with associated groundglass reticular infiltrate in keeping with right upper lobe pneumonia. Findings may represent a combination of community-acquired pneumonia including bacterial and viral pneumonia." Pneumonia-given that the patient has failed cephalosporin as well as macrolide, we will start her on moxifloxacin and see how she does with that. Her d-dimer is high but to her well's score is low. But given her persistent symptoms and high d-dimer we will do a CT chest PE protocol to rule out pulmonary embolism. Nicotine dependence-patient was counseled about quitting smoking. We will put her on nicotine patch if she has cravings.
--- NOTE | 2017-01-30 20:52 | CT SCAN REPORT ---
EXAMINATION: CT PULMONARY EMBOLISM STUDY CLINICAL INFORMATION: Tachycardia, elevated d-dimer. COMPARISON: Same day chest radiographs and CT. TECHNIQUE: Contiguous helical images of the chest were obtained following the administration of IV contrast. Multiplanar reconstructions were performed. MIPS were obtained and reviewed. DLP: 636 mGy-cm. CONTRAST: 95 mL of Optiray 350 were traffic agent without incident. FINDINGS: The heart is of normal size. There is no pericardial effusion. The great vessels are unremarkable. Specifically, there is no pulmonary arterial filling defect. There is no CT evidence for pulmonary embolism. There is no discernible lymphadenopathy. There are no chest wall masses. Review of lung windows demonstrates that there are neither pleural effusions nor pneumothoraces. There is a right upper lobe consolidation. There is mild air trapping within the right lower lobe and left upper lobe. Limited evaluation of the upper abdomen demonstrates that the liver is of normal size and attenuation without focal lesions. Normal adrenal glands are identified. IMPRESSION: No CT evidence for pulmonary embolism. Right upper lobe pneumonia. Recommendation is for a followup chest series to be obtained following treatment and/or resolution of symptoms to assure resolution of this appearance.
[2017-01-30 22:50] VITALS: BP 150/80
[2017-01-31 06:18] VITALS: BP 176/80
[2017-01-31 08:35] LABS: ABSOLUTE BASOPHIL COUNT 0 /CUMM (0.0-0.2); ABSOLUTE EOSINOPHIL COUNT 0 /CUMM (0.0-0.7); ABSOLUTE LYMPH COUNT 1.5 /CUMM (1.2-3.4); ABSOLUTE MONOCYTE COUNT 0.5 /CUMM (0.10-0.60); BASOPHIL % 0 % (0.0-2.0); EOSINOPHIL % 0 % (0-5); MEAN CORPUSCULAR VOLUME 81.8 FL (81.0-99.0); MEAN PLATELET VOLUME 7.8 FL (7.4-10.4); PLATELET COUNT 464 /CUMM (130-400); RBC DISTRIBUTION WIDTH 14.3 % (11.5-14.5); RED BLOOD CELL CT 4.27 /CUMM (4.20-5.40)
[2017-01-31 10:03] VITALS: BP 150/70
[2017-01-31 10:53] LABS: GRANULOCYTE % 89.1 % (42.2-75.2)
--- NOTE | 2017-01-31 13:35 | PN- Housestaff ---
ALCIRA PUENTE,KRDENI 01/31/17 1335: Subjective Follow-up For: CAP Subjective: Saw pt at bedside. She stated that she felt better today. Afebrileovernight. She stated that she felt better than yesterday. She was ambulating with IV pole in hallway when I saw her this AM. Looks much better than yesterday. No acute overnight events or complaints. Review of Systems Constitutional: Reports: no symptoms. Cardiovascular: Denies: chest pain, palpitations. Respiratory: Reports: short of breath, sputum production. Denies: cough, orthopnea. Gastrointestinal: Reports: no symptoms. Genitourinary: Reports: no symptoms. Musculoskeletal: Reports: no symptoms. Denies: joint pain, joint swelling, muscle pain. Objective Last 24 Hrs of Vital Signs/I&O Vital Signs Date Time Temp Pulse Resp B/P Pulse O2 O2 Flow FiO2 Ox Delivery Rate 01/31 2203 98.2 100 20 160/88 94 01/31 1404 98.4 100 20 130/90 94 Room Air 01/31 1003 150/70 01/31 0832 111 176/80 01/31 0800 Room Air 01/31 0618 98.0 111 20 176/80 95 Room Air Intake & Output 01/31 1600 01/31 0800 01/31 0000 Intake Total 780 650 975 Output Total Balance 780 650 975 Intake, IV 300 450 225 Intake, Oral 480 200 750 Number 0 Bowel Movements Patient 95.254 kg Weight Physical Exam General Appearance: Alert, Oriented X3, Cooperative Skin: No Significant Lesion HEENT: Atraumatic, EOMI Neck: Supple Cardiovascular: Regular Rate, Normal S1, Normal S2 Lungs: decreased air movement on r. side. Abdomen: Soft, No Tenderness Assessment/Plan Assessment: 50 yo female with Hx of MS who repsents with failure of out pt therapy for CAP. PLAN 1. Sepsis 2/2 PNA: SIRS+ wtih sources as PNA. White count increased from 15--> 18 likely 2/2 her steroids in ED. Otherwise pt afebrile and fells better. Satting well on 2lO2. Note given pt's persistent symptoms adn PMH there is concern for aspiration or possibly obstructive causes of PNA. * Con't moxifloxacin; don't change abx. * monitor clinically * f/u legionella, strep and influenza work up * f/u CBC * NC as necessary 2. Tachycardia: Pt presented with HR 110-125. Part of her SIRS syndrome. No clear etiology other than infxn. WIll monitor for its resolution along with infxn. 3. ms: Chronic and stable. * Con't home meds Problem List: 1. Shortness of breath 2. PNA (pneumonia) Pain Ratin Pain Location: NONE Pain Goal: Remain pain free Pain Plan: NONE Tomorrow's Labs & Rationales: CBC BEP ALVINORAFY Bustos 01/31/17 1354: Attending MD Review Statement Attending Statement Attending MD Statement: examined this patient, discuss w/resident/PA/MIXER OPERATOR HOT METAL, agreed w/resident/PA/MIXER OPERATOR HOT METAL, discussed with family, reviewed EMR data (avail), discussed with nursing, discussed with case mgmt, reviewed images, amended to note Attending Assessment/Plan: 50-year-old female with a past medical history of diabetes hypertension who presented to the [facility] with persistent shortness of breath after failing outpatient treatment for community-acquired pneumonia. CT chest shows 1. Right upper lobe consolidation with associated groundglass reticular infiltrate in keeping with right upper lobe pneumonia. Findings may represent a combination of community-acquired pneumonia including bacterial and viral pneumonia. Continued evaluation with follow-up CT chest after treatment in 4-6 weeks recommended. 2. Mildly enlarged reactive mediastinal lymph nodes. 3. Nodular density noted again in the superior mediastinum. Given the stability, this may represent either a stable superior thymic lesion versus aberrant thyroid or parathyroid adenoma. 4. Stable right adrenal nodule. EKG showed sinus tachycardia ASSESSMENT and PLAN 1. Community acquired pneumonia failed outpatient therapy. IV abx, oxygen supplementation as required. 2. Persistent tachycardia CTA negativen for PE. 3. hypertension controlled 4. diabetes mellitus controlled 5. History of multiple sclerosis in remission 6. Leukocytosis
[2017-01-31 14:04] VITALS: BP 130/90
--- NOTE | 2017-01-31 15:58 | PN- Student ---
Subjective Subjective: Patient seen this morning. No acute overnight reports. Patient denies any current complaints. Objective Objective: Vital Signs Date Time Temp Pulse Resp B/P Pulse O2 O2 Flow FiO2 Ox Delivery Rate 01/31 1404 98.4 100 20 130/90 94 Room Air 01/31 1003 150/70 01/31 0832 111 176/80 01/31 0800 Room Air 01/31 0618 98.0 111 20 176/80 95 Room Air 01/30 2250 98.3 114 19 150/80 94 Room Air 01/30 2009 Room Air 01/30 1731 99.4 118 19 164/80 95 Room Air 01/30 1638 98.6 118 18 178/88 95 Room Air Intake & Output 01/31 1600 01/31 0800 01/31 0000 Intake Total 780 650 975 Output Total Balance 780 650 975 Intake, IV 300 450 225 Intake, Oral 480 200 750 Number 0 Bowel Movements Patient 210 lb Weight Physical Exam General Appearance Alert, Oriented X3, Cooperative Skin No Rashes, No Breakdown HEENT Atraumatic, PERRLA, EOMI Neck No JVD, No thryomegaly Cardiovascular Normal S1, Normal S2 Lungs Bilateral decreased air entry no wheezing or crackles Abdomen Soft, No Tenderness Current Medications Sig/Jai Start time Last Medication Dose Route Stop Time Status Admin Azithromycin 500 MG DAILY 01/31 1000 CAN Sodium Chloride 250 ML IV Carisoprodol 350 MG BID PRN 01/30 1615 AC 01/31 PO 1435 Ceftriaxone Sodium 1,000 MG DAILY 01/31 1000 CAN IV Cyanocobalamin 1,000 MCG QSAT 02/04 0700 AC IM Enoxaparin Sodium 40 MG DAILY 01/30 1624 AC SC Ibuprofen 400 MG .STK-MED ONE 01/31 0102 DC PO 01/31 0103 Ibuprofen 600 MG Q6P PRN 01/30 1545 AC 01/31 PO 0148 Insulin Aspart 0 TIDAC 01/30 1700 AC 01/31 SC 1151 Linaclotide 290 MCG DAILY 01/31 1000 AC 01/31 PO 0831 Losartan Potassium 50 MG DAILY 01/31 1000 AC 01/31 PO 0832 Losartan Potassium 0 .STK-MED ONE 01/30 1714 DC PO Losartan Potassium 50 MG DAILY 01/30 1630 DC PO Morphine Sulfate 2 MG Q4P PRN 01/30 1545 AC IV Moxifloxacin HCl 400 MG Q24 01/31 1000 CAN IV Moxifloxacin HCl 400 MG Q24H 01/31 1000 AC 01/31 N/A 1 UNIT IV 0836 Omeprazole 40 MG AT BEDTIME 01/31 2200 DC PO Omeprazole 40 MG DAILY AC 01/31 0700 DC PO Omeprazole 40 MG AT BEDTIME 01/30 2200 AC 01/30 PO 2241 Oxycodone HCl 15 MG TIDPRN PRN 01/30 1815 AC 01/31 PO 1435 Patient Medication 1 ED .STK-MED ONE 01/31 1431 DC Teaching ED 01/31 1432 Senna/Docusate Sodium 2 TAB DAILY PRN 01/30 2045 AC PO Sodium Chloride 1,000 ML Q13H 01/30 1815 DC 01/30 IV 01/31 0714 1934 Assessment/Plan Assessment: Patient is a 50 year-old female with a past medical history significant for diabetes, and hypertension who presented to [facility] with persistent shortness of breath after failing outpatient treatment for community-acquired pneumonia. CT chest showed: 1. Right upper lobe consolidation with associated groundglass reticular infiltrate in keeping with right upper lobe pneumonia. Findings may represent a combination of community-acquired pneumonia including bacterial and viral pneumonia. Continued evaluation with follow-up CT chest after treatment in 4-6 weeks recommended. 2. Mildly enlarged reactive mediastinal lymph nodes. 3. Nodular density noted again in the superior mediastinum. Given the stability, this may represent either a stable superior thymic lesion versus aberrant thyroid or parathyroid adenoma. 4. Stable right adrenal nodule. EKG showed sinus tachycardia ASSESSMENT/PLAN 1. Community acquired pneumonia * Failed outpatient therapy * IV abx, oxygen supplementation as required. 2. Persistent tachycardia * CTA negativen for PE. 3. Hypertension * Controlled 4. Diabetes mellitus * Controlled 5. History of multiple sclerosis * In remission 6. Leukocytosis
[2017-01-31] MEDS ORDERED: AVELOX400 M1 PO (20:54)
--- NOTE | 2017-01-31 20:56 | Patient Discharge Instructions ---
Discharge Instructions General Discharge Information You were seen/treated for: pneumonia Special Instructions: please f/u with your PCP in1 week Please ask your PCP regarding repeating CXR in 4 weeks for the resolution of PNA Don't take antibiotic with "divalent cations" such as calcium. So avoid taking antibiotic with your vitamins. Acute Coronary Syndrome Inclusion Criteria At DC or during hospital stay patient has or had the following: ACS DIAGNOSIS No Discharge Core Measures Meds if any: Prescribed or Continued at Discharge Meds if any: NOT Prescribed or Continued at Discharge Congestive Heart Failure Inclusion Criteria At DC or during hospital stay patient has or had the following: CHF DIAGNOSIS No Discharge Core Measures Meds if any: Prescribed or Continued at Discharge Meds if any: NOT Prescribed or Continued at Discharge Cerebrovascular accident Inclusion Criteria At DC or during hospital stay patient has or had the following: CVA/TIA Diagnosis No Discharge Core Measures Meds if any: Prescribed or Continued at Discharge Meds if any: NOT Prescribed or Continued at Discharge Venous thromboembolism Inclusion Criteria VTE Diagnosis No VTE Type NONE VTE Confirmed by (Test) NONE Discharge Core Measures - Per Current guidelines, there needs to be overlap - treatment for the first 5 days of Warfarin therapy. - If discharged on Warfarin prior to 5 days of - overlap therapy, the patient will need to be - assessed for post discharge needs including - *Post discharge parental anticoagulation - *Warfarin and/or parental anticoagulation education - *Follow up date to check INR post discharge At least 5 days overlap therapy as Inpatient No Meds if any: Prescribed or Continued at Discharge Note: Overlap Therapy is Warfarin and Anticoagulant Meds if any: NOT Prescribed or Continued at Discharge
[2017-01-31 22:03] VITALS: BP 160/88
[2017-02-01 06:23] VITALS: BP 140/60
[2017-02-01 08:14] LABS: ABSOLUTE BASOPHIL COUNT 0 /CUMM (0.0-0.2); ABSOLUTE EOSINOPHIL COUNT 0.1 /CUMM (0.0-0.7); ABSOLUTE GRANULOCYTE CT 10.8 /CUMM (1.4-6.5); ABSOLUTE LYMPH COUNT 2.5 /CUMM (1.2-3.4); ABSOLUTE MONOCYTE COUNT 0.8 /CUMM (0.10-0.60); BASOPHIL % 0.2 % (0.0-2.0); EOSINOPHIL % 0.5 % (0-5); GRANULOCYTE % 75.8 % (42.2-75.2); HEMATOCRIT 35.1 % (37-47); MEAN CORPUSCULAR HGB 26.9 PG (27.0-31.0); MEAN CORPUSCULAR VOLUME 81.5 FL (81.0-99.0); MEAN PLATELET VOLUME 7.5 FL (7.4-10.4); PLATELET COUNT 467 /CUMM (130-400); RBC DISTRIBUTION WIDTH 14.3 % (11.5-14.5); RED BLOOD CELL CT 4.31 /CUMM (4.20-5.40); WHITE BLOOD CELL COUNT 14.3 /CUMM (4.8-10.8)
--- NOTE | 2017-02-01 08:56 | PN- Housestaff ---
ALCIRA PUENTE,AMMON 02/01/17 0856: Subjective Follow-up For: sob outpt failure of trt for pna Subjective: Saw patient at bedside this a.m. She said she felt much better. However she continues to have some shortness of breath and pleuritic pain in her right scapula when she lays down. She states the pain is getting better, however it is still present. Her tachycardia has improved. On admission she was up to 125 , overnight at 111, during the day 95. Patient satting well off oxygen supplementation. 94-95 on room air. She is stable for discharge later today. Review of Systems Constitutional: Denies: chills, fever, weakness. EENTM: Reports: no symptoms. Cardiovascular: Denies: chest pain, palpitations. Respiratory: Denies: cough, hemoptysis, orthopnea, short of breath, sputum production, wheezing. Gastrointestinal: Reports: no symptoms. Genitourinary: Reports: no symptoms. Musculoskeletal: Reports: back pain. Objective Last 24 Hrs of Vital Signs/I&O Vital Signs Date Time Temp Pulse Resp B/P B/P Pulse O2 O2 Flow FiO2 Mean Ox Delivery Rate 02/01 0947 86 142/80 02/01 0623 98.3 95 20 140/60 94 Room Air 01/31 2203 98.2 100 20 160/88 94 Intake & Output 02/01 1600 02/01 0800 02/01 0000 Intake Total 200 200 Output Total Balance 200 200 Intake, Oral 200 200 Physical Exam General Appearance: Alert, Oriented X3, Cooperative, No Acute Distress Skin: No Rashes Neck: Supple Cardiovascular: Regular Rate, Normal S2, No Murmurs Lungs: symptoms and movement. However, cannot appreciate any wheezes, rubs, rhonchi or crackles Abdomen: Soft, No Tenderness Current Medications: Current Medications Sig/Jai Start time Last Medication Dose Route Stop Time Status Admin Carisoprodol 350 MG BID PRN 01/30 1615 AC 01/31 PO 1435 Cyanocobalamin 1,000 MCG QSAT 02/04 0700 AC IM Enoxaparin Sodium 40 MG DAILY 01/30 1624 AC SC Ibuprofen 600 MG Q6P PRN 01/30 1545 AC 02/01 PO 0405 Insulin Aspart 0 TIDAC 01/30 1700 AC 02/01 SC 1206 Linaclotide 290 MCG DAILY 01/31 1000 AC 02/01 PO 0944 Losartan Potassium 50 MG DAILY 01/31 1000 AC 02/01 PO 0947 Miconazole Nitrate 1 TATIANA AT BEDTIME 01/31 2200 AC 01/31 VAG 210 Morphine Sulfate 2 MG Q4P PRN 01/30 1545 AC IV Moxifloxacin HCl 400 MG Q24H 01/31 1000 AC 02/01 N/A 1 UNIT IV 0944 Omeprazole 40 MG AT BEDTIME 01/30 2200 AC 01/31 PO 210 Oxycodone HCl 15 MG TIDPRN PRN 01/30 1815 AC 02/01 PO 0958 Patient Medication 1 ED .[facility] 01/[address] Teaching ED 01/31 1432 Senna/Docusate Sodium 2 TAB DAILY PRN 01/30 2045 AC PO Last 24 Hrs of Lab/Tanmay Results Last 24 Hrs of Labs/Mics: Laboratory Tests 02/01/17 0645: Anion Gap 11, Estimated GFR > 60, BUN/Creatinine Ratio 20.0, CBC w Diff NO MAN DIFF REQ, RBC 4.31, MCV 81.5, MCH 26.9 L, RDW 14.3, MPV 7.5, Gran % 75.8 H, Lymphocytes % 17.7 L, Monocytes % 5.8, Eosinophils % 0.5, Basophils % 0.2, Absolute Granulocytes 10.8 H, Absolute Lymphocytes 2.5, Absolute Monocytes 0.8 H, Absolute Eosinophils 0.1, Absolute Basophils 0, PUBS MCHC 33.0 Assessment/Plan Assessment: 50 yo female with Hx of MS who repsents with failure of out pt therapy for CAP. She failed outpt therapy with azithromycin and cefuroxime. PLAN 1. Sepsis 2/2 PNA: SIRS+ with source as PNA. White count increased from 15--> 18 likely 2/2 her steroids in ED; today at 14.5. Otherwise pt afebrile and fells better. Satting well off O2. Note given pt's persistent symptoms and PMH there is concern for aspiration or possibly obstructive causes of PNA. * Con't moxifloxacin--> will convert to PO and d.c today. Note pt has been educated to avoid divalent cations. Treatment duration for a full 14 days as she failed out pt therapy. * f/u legionella, strep and influenza work up * f/u CBC * NC as necessary * Follow up imaging on out basis per PCP in 4-6 wks 2. Tachycardia: RESOLVING. Pt presented with HR 110-125; overnight at 111. This AM around 90s. 3. MS: Chronic and stable. * Con't home meds 4. Incidental findings on CT: * Follow up out pt with PCP Problem List: 1. Nodule of right anterior chest wall 2. PNA (pneumonia) 3. Shortness of breath Pain Ratin Pain Location: chest Pain Goal: Remain pain free Pain Plan: urrent reg Tomorrow's Labs & Rationales: none DVT/Prophylaxis: pharmacological RAFY DE OLIVEIRA 02/01/17 1411: Attending MD Review Statement Attending Statement Attending MD Statement: examined this patient, discuss w/resident/PA/KITCHEN DESIGNER, agreed w/resident/PA/KITCHEN DESIGNER, discussed with family, reviewed EMR data (avail), discussed with nursing, discussed with case mgmt, reviewed images, amended to note Attending Assessment/Plan: 50-year-old female with a past medical history of diabetes hypertension who presented to the [facility] with persistent shortness of breath after failing outpatient treatment for community-acquired pneumonia. CT chest shows 1. Right upper lobe consolidation with associated groundglass reticular infiltrate in keeping with right upper lobe pneumonia. Findings may represent a combination of community-acquired pneumonia including bacterial and viral pneumonia. Continued evaluation with follow-up CT chest after treatment in 4-6 weeks recommended. 2. Mildly enlarged reactive mediastinal lymph nodes. 3. Nodular density noted again in the superior mediastinum. Given the stability, this may represent either a stable superior thymic lesion versus aberrant thyroid or parathyroid adenoma. 4. Stable right adrenal nodule. EKG showed sinus tachycardia ASSESSMENT and PLAN 1. Community acquired pneumonia failed outpatient therapy. IV abx, oxygen supplementation as required. Change to PO abx at discharge. 2. Persistent tachycardia CTA negativen for PE. 3. hypertension controlled 4. diabetes mellitus controlled 5. History of multiple sclerosis in remission 6. Leukocytosis improved.
[2017-02-01 09:47] VITALS: BP 142/80
[2017-02-01] MEDS ORDERED: ACIDOPHILUS1 EAC1 PO (10:15)
[2017-02-01] MEDS ORDERED: CLOTRIMAZOLE15 GM TOP (10:17)
[2017-02-01] MEDS ORDERED: AVELOX400 M1 PO (10:17)
--- NOTE | 2017-02-01 12:43 | NUR ---
0930- DR. DE OLIVEIRA AND DR. SMYTH NOTIFIED OF R POSTERIOR PLEURAL PAIN 02/22. PT STATES IT IS PERSISTANT. MD TO ASSESS AT BEDSIDE.
--- NOTE | 2017-02-01 15:23 | PN- Student ---
Subjective Subjective: Patient seen this morning. Sitting by the beside in no acute distress. Overnight event of back pain on inspiration located over the right scapula, particularly when laying down. Patient denies any other current complaint. Objective Objective: Vital Signs Date Time Temp Pulse Resp B/P B/P Pulse O2 O2 Flow FiO2 Mean Ox Delivery Rate 02/01 0947 86 142/80 02/01 0623 98.3 95 20 140/60 94 Room Air 01/31 2203 98.2 100 20 160/88 94 Intake & Output 02/01 1600 02/01 0800 02/01 0000 Intake Total 720 200 200 Output Total Balance 720 200 200 Intake, Oral 720 200 200 Physical Exam General Appearance: Alert, Oriented X3, Cooperative, No Acute Distress Skin: No Rashes Neck: Supple Cardiovascular: Regular Rate, Normal S2, No Murmurs Lungs: No wheezes, rubs, rhonchi or crackles Abdomen: Soft, No Tenderness Current Medications Sig/Jai Start time Last Medication Dose Route Stop Time Status Admin Carisoprodol 350 MG BID PRN 01/30 1615 AC 01/31 PO 1435 Cyanocobalamin 1,000 MCG QSAT 02/04 0700 AC IM Enoxaparin Sodium 40 MG DAILY 01/30 1624 AC SC Ibuprofen 600 MG Q6P PRN 01/30 1545 AC 02/01 PO 0405 Insulin Aspart 0 TIDAC 01/30 1700 AC 02/01 SC 1206 Linaclotide 290 MCG DAILY 01/31 1000 AC 02/01 PO 0944 Losartan Potassium 50 MG DAILY 01/31 1000 AC 02/01 PO 0947 Miconazole Nitrate 1 TATIANA AT BEDTIME 01/31 2200 AC 01/31 VAG 2103 Morphine Sulfate 2 MG Q4P PRN 01/30 1545 AC IV Moxifloxacin HCl 400 MG Q24H 01/31 1000 AC 02/01 N/A 1 UNIT IV 0944 Omeprazole 40 MG AT BEDTIME 01/30 2200 AC 01/31 PO 2103 Oxycodone HCl 15 MG TIDPRN PRN 01/30 1815 AC 02/01 PO 0958 Senna/Docusate Sodium 2 TAB DAILY PRN 01/30 2045 AC PO Assessment/Plan Assessment: Patient is a 50 year-old woman with a history of multiple sclerosis who presented to [facility] with shortness of breath. Patient previously failed outpatient treatment for community-acquired pneumonia on azithromycin and cefuroxime. 1 - Sepsis 2 - Persistent tachycardia 1 - Sepsis secondary to pneumonia * Patient was SIRS positive for sepsis * Treat with IV moxifloxacin. Switch to oral tablets on discharge with probiotics * Consider metronidazole for yeast infections secondary to antibiotic use * Continue monitoring for clinical signs and symptoms until discharge 2 - Persistent tachycardia * Sign of SIRS * Continue monitoring with treatment for eventual resolution
--- NOTE | 2017-02-01 16:09 | NUR ---
1448- NOTIFIED BY PHARMACY THAT [facility] REQUIRES PREAUTHORIZATION. DR. ELI NOTIFIED AND TO CALL INSURANCE [employer] 1600- JERALD DURAND PT PICKING UP PRESCRIPTION AT [facility]
--- NOTE | 2017-02-09 16:11 | Discharge Summary ---
Visit Information Visit Dates Admission Date: 01/30/17 Discharge Date: 02/01/17 Hospital Course Course Attending Physician: RAFY DE OLIVEIRA MD Primary Care Physician: KAITY SNOW MD Hospital Course: 50 yo female with Hx of MS who repsents with failure of out pt therapy for CAP. She failed outpt therapy with azithromycin and cefuroxime. PLAN 1. Sepsis 2/2 PNA: SIRS+ with source as PNA. White count increased from 15--> 18 likely 2/2 her steroids in ED; On discharge WBC at 14.5. Note given pt's persistent symptoms and PMH there is concern for aspiration or possibly obstructive causes of PNA. Pt given IV moxifloxacin in patient * Con't moxifloxacin PO out pt. Note pt has been educated to avoid divalent cations. Treatment duration for a full 14 days as she failed out pt therapy. * f/u legionella, strep and influenza work up * Follow up imaging on out basis per PCP in 4-6 wks 2. Tachycardia: RESOLVING. Pt presented with HR 110-125; overnight at 111. On discharge around 90s. 3. MS: Chronic and stable. * Con't home meds 4. Incidental findings on CT: Follow up out pt with PCP 1. Right upper lobe consolidation with associated groundglass reticular infiltrate in keeping with right upper lobe pneumonia. Findings may represent a combination of community-acquired pneumonia including bacterial and viral pneumonia. Continued evaluation with follow-up CT chest after treatment in 4-6 weeks recommended. 2. Mildly enlarged reactive mediastinal lymph nodes. 3. Nodular density noted again in the superior mediastinum. Given the stability, this may represent either a stable superior thymic lesion versus aberrant thyroid or parathyroid adenoma. 4. Stable right adrenal nodule. Allergies: Coded Allergies: cyclophosphamide (From CYTOXAN) (UNKNOWN 01/30/17) methylprednisolone (From SOLU-MEDROL) (UNKNOWN 01/30/17) Pertinent Lab Results: EXAM TYPE: CAT - CTA CHEST-PULMONARY EMBOLISM EXAMINATION: CT PULMONARY EMBOLISM STUDY CLINICAL INFORMATION: Tachycardia, elevated d-dimer. COMPARISON: Same day chest radiographs and CT. TECHNIQUE: Contiguous helical images of the chest were obtained following the administration of IV contrast. Multiplanar reconstructions were performed. MIPS were obtained and reviewed. DLP: 636 mGy-cm. CONTRAST: 95 mL of Optiray 350 were mill dresser without incident. FINDINGS: The heart is of normal size. There is no pericardial effusion. The great vessels are unremarkable. Specifically, there is no pulmonary arterial filling defect. There is no CT evidence for pulmonary embolism. There is no discernible lymphadenopathy. There are no chest wall masses. Review of lung windows demonstrates that there are neither pleural effusions nor pneumothoraces. There is a right upper lobe consolidation. There is mild air trapping within the right lower lobe and left upper lobe. Limited evaluation of the upper abdomen demonstrates that the liver is of normal size and attenuation without focal lesions. Normal adrenal glands are identified. IMPRESSION: No CT evidence for pulmonary embolism. Right upper lobe pneumonia. Recommendation is for a followup chest series to be obtained following treatment and/or resolution of symptoms to assure resolution of this appearance. EXAMINATION: CT CHEST WITHOUT CONTRAST CLINICAL INFORMATION: Right upper lobe pneumonia COMPARISON: CT chest dated 04/04/2016. Multiple prior chest x-rays most recent prior dated 01/30/2017 TECHNIQUE: Multidetector volumetric CT imaging of the chest was done. Axial MIP volume rendering provided. Sagittal and coronal reformatted images were obtained. DLP: 376.66 mGy-cm FINDINGS: EEG TECHNICIAN: Patchy reticular opacity right upper lung. LUNGS: Underlying emphysematous changes. Airspace consolidation with air bronchograms apical apical, lateral and posterior aspects right upper lobe. Associated reticular changes and groundglass opacity noted throughout the right upper lobe. These are new finding compared to the prior CT chest. There is also represent new findings on the chest x-ray compared to prior chest x-ray dated 01/11/2017. Patchy consolidation extends to the right hilum. Patent tracheobronchial tree. The remaining lungs do not demonstrate any evidence of similar airspace opacity. Linear subpleural ectatic changes noted in the left apical segment and minor reticular changes noted in the subpleural location right base. MEDIASTINUM: Mildly enlarged lymph node noted in the right pretracheal region measuring approximately 0.9 cm in short axis and mildly enlarged subcarinal lymph node compatible with reactive nodes. Small epicardiac lymph node noted again. No gross lymphadenopathy. Mild atherosclerotic disease with intimal calcification of the aorta. Slightly hyperdense nodule noted in the superior mediastinum measuring approximately 2.3 x 1.6 cm has remained stable over the interval. Given its long-term stability since remote CT chest dated 08/22/2013, this may represent benign etiology including parathyroid adenoma or aberrant thyroid tissue given the similar density and enhancement compared to the adjacent thyroid gland. PLEURA: Pleural thickening right upper lobe. Trace right pleural effusion. AXILLA: No lymphadenopathy. UPPER ABDOMEN: Stable right adrenal nodule measuring approximately 1.5 cm. Hounsfield units are suggestive of adrenal adenoma. Stable minor prominence of the left adrenal gland. OSSEOUS STRUCTURES: No acute osseous modality. IMPRESSION: 1. Right upper lobe consolidation with associated groundglass reticular infiltrate in keeping with right upper lobe pneumonia. Findings may represent a combination of community-acquired pneumonia including bacterial and viral pneumonia. Continued evaluation with follow-up CT chest after treatment in 4-6 weeks recommended. 2. Mildly enlarged reactive mediastinal lymph nodes. 3. Nodular density noted again in the superior mediastinum. Given the stability, this may represent either a stable superior thymic lesion versus aberrant thyroid or parathyroid adenoma. 4. Stable right adrenal nodule. Disposition Summary Disposition Principal Diagnosis: pna Additional Diagnosis: tachycardia Discharge Disposition: home or self care Discharge Instructions General Discharge Information Code Status: Full Code Patient's Diet: as tolerated Patient's Activity: as tolerated Follow-Up Instructions/Appts: see above Medications at Discharge Discharge Medications: Stop taking the following medications: Cefdinir (Cefdinir) 300 MG CAPSULE ORAL TWICE DAILY Qty = 20 Continue taking these medications: Losartan Potassium (Losartan Potassium) 50 MG TABLET 1 Tablet ORAL DAILY Qty = 90 Comments: Last Taken: 02/01/17 Time: 944 AM Linaclotide (Linzess) 290 MCG CAPSULE 1 Capsule ORAL DAILY Qty = 30 Comments: Last Taken: 02/01/17 Time: 944 AM Metformin HCl (Metformin HCl) 500 MG TABLET 1 Tablet ORAL DAILY Qty = 90 Cyclobenzaprine HCl (Cyclobenzaprine HCl) 10 MG TABLET 1 Tablet ORAL THREE TIMES DAILY as needed for MUSCLE SPASMS Qty = 30 Clonazepam (Clonazepam) 1 MG TABLET 1 Tablet ORAL 2 x Daily as needed as needed for ANXIETY Qty = 60 Carisoprodol (Carisoprodol) 350 MG TABLET 1 Tablet ORAL 2 x Daily as needed as needed for MUSCLE SPASMS Qty = 45 Comments: Last Taken: 01/31/17 Time: 230 PM Ipratropium/Albuterol Sulfate (Combivent Respimat Inhal Rowdy) 20 MCG-100 MCG/ ACTUATION MIST.INHAL 2 PUFF ORAL DAILY as needed for SHORTNESS OF BREATH Qty = 4 Oxycodone HCl (Oxycodone HCl) 15 MG TABLET 1 Tablet ORAL THREE TIMES A DAY NEEDED as needed for PAIN Qty = 110 Comments: Last Taken: 02/01/17 Time: 10 AM Hydrocodone/Acetaminophen (Hydrocodon-Acetaminophn 10-300) 10 MG-300 MG TABLET 1 Tablet ORAL EVERY SIX HOURS as needed for PAIN Qty = 150 Cyanocobalamin (Vitamin B-12) (Cyanocobalamin Injection) 1,000 MCG/ML VIAL 1 Milliliters INTRAMUSC EVERY MONDAY Qty = 12 Fluticasone-Salmeterol (Advair 100-50 Diskus) 100 MCG-50 MCG/DOSE BLST.W.DEV 1 Puff Inhale through mouth TWICE DAILY Qty = 180 Furosemide (Furosemide) 20 MG TABLET 1 Tablet ORAL DAILY as needed for WATER PILL Qty = 90 Esomeprazole (Nexium) 40 MG CAPSULE.DR 1 Capsule ORAL Every night Qty = 90 Comments: Last Taken: 01/31/17 Time: 9 PM Start taking the following new medications: Moxifloxacin HCl (Avelox) 400 MG TABLET 1 Tablet ORAL DAILY Qty = 12 No Refills Comments: Last Taken: 02/01/17 Time: 944 AM Lactobacillus Acidophilus (Acidophilus) 1 BILLION CELL TABLET 1 Tablet ORAL DAILY Qty = 30 No Refills Clotrimazole (Clotrimazole) 1 % CREAM..G. 1 Application On the skin Every Morning-Night Qty = 2 No Refills Instructions: apply to affected area(s) Copies To: EDY UPENTE,KAITY Wall
== END 2017-02-01 16:00 | DRG 195 ==
LOC: ENRESERVTM → ENRESERVDT → ERH 12:44 → 2NA 15:13 → ERHI 15:13 → 2NA 17:16 → ENPENDDIS 02-01 10:32 → 2NA 02-01 16:00
PROVIDERS: Internal Medicine Nephrology; Physician Assistant Medical; Student in an Organized Health Care Education/Training Program; ADMIT Internal Medicine
DX: J18.9 Pneumonia, unspecified organism (principal); G35 Multiple sclerosis; I10 Essential (primary) hypertension; J45.909 Unspecified asthma, uncomplicated; F17.200 Nicotine dependence, unspecified, uncomplicated; E11.9 Type 2 diabetes mellitus without complications; Z79.84 Long term (current) use of oral hypoglycemic drugs
CPT/HCPCS: 2NAP; 2NASP; 36415; 82436; 87040; 87449; 87450; 87804; 87804-59; 93005; 93010; 96374; J0456; J0696; J1650; J2280; J2930; J7040